=== PATIENT | female | born 1980 | race Caucasian/White ===

== ENCOUNTER 2017-07-11 10:16 | Inpatient (IN) ==
[2017-07-11 11:53] LABS: Eosinophils % 1.9 %; Hematocrit 38.7 % (35.3-44.9); Hemoglobin 12.6 g/dL (11.5-15.4); Lymphocytes # 0.7 K/mcL (0.6-4.6); Lymphocytes % 34.1 %; Mean Corpuscular HGB Conc 32.6 g/dL (31.6-35.5); Mean Corpuscular Volume 98.2 fL (83.0-100.0); Monocytes # 0.2 K/mcL (0.0-1.3); Monocytes % 7.2 %; Neutrophils # 1.2 K/mcL (1.6-8.9); Platelet Count 102 K/mcL (140-400); Red Blood Count 3.94 M/mcL (3.82-4.97); Red Cell Distribution Width 16.7 % (11.5-14.5)
[2017-07-11 11:54] LABS: Bilirubin,Urine Negative (Negative); Blood,Urine Negative (Negative); Clarity,Urine Cloudy (Clear); Color,Urine Yellow (Yellow); Glucose,Urine (UA) Normal (Normal); Ketones,Urine Negative (Negative); Leukocyte Esterase,Urine Negative (Negative); Nitrite,Urine Negative (Negative); PH,Urine 6.5 pH Units (5.0-8.0); Protein,Urine Negative (Neg-Trace); Specific Gravity,Urine 1.021 (1.010-1.025); Urobilinogen,Urine Normal (Normal)
[2017-07-11 11:56] LABS: Bacteria,Urine Few per hpf (None-Few); Hyaline Casts,Urine None Seen per lpf (None-Few); RBC,Urine 0-3 per hpf (0-3); Squamous Epithelial Cell,Urine Many per lpf (None-Few)
[2017-07-11 11:58] LABS: Prothrombin Time 10.2 Seconds (9.4-12.1)
[2017-07-11 12:00] LABS: Activated Partial Thrombo Time 44.9 Seconds (26.0-36.0)
[2017-07-11 12:05] LABS: Segmented Neutrophils % 56.1 %
[2017-07-11 12:05] LABS: Ethanol < 10 mg/dL (0-10)
[2017-07-11 12:11] LABS: Alanine Aminotransferase 44 Units/L (7-52); Albumin 3.7 g/dL (3.5-5.7); Albumin/Globulin Ratio 1.1 (1.1-2.2); Alkaline Phosphatase 185 Units/L (34-104); Aspartate Amino Transferase 42 Units/L (13-39); BUN/Creatinine Ratio 27 (6-26); Bilirubin,Direct 0.1 mg/dL (0.0-0.2); Bilirubin,Indirect 0.1 mg/dL (0.0-1.2); Bilirubin,Total 0.2 mg/dL (0.3-1.0); Blood Urea Nitrogen 17 mg/dL (6-20); Calcium 9.6 mg/dL (8.6-10.3); Carbon Dioxide 33 mEq/L (23-29); Chloride 103 mEq/L (98-107); Globulin 3.3 g/dL (2.4-3.5); Glucose 74 mg/dL (70-105); Osmolality,Calculated 288 (280-300); Potassium 4.2 mEq/L (3.5-5.1); Sodium 139 mEq/L (136-145); eGFR For African Americans > 60 (> 60); eGFR For Non-African Americans > 60 (> 60)
[2017-07-11 12:16] LABS: Amphetamine Screen,Urine Negative ng/mL (Cutoff=1000); Barbiturate Screen,Urine Negative ng/mL (Cutoff=200); Benzodiazepines Screen,Urine Negative ng/mL (Cutoff=200); Cannabinoid Screen,Urine Negative ng/mL (Cutoff = 50); Cocaine Screen,Urine Negative ng/mL (Cutoff= 300); Opiate Screen,Urine Negative ng/mL (Cutoff=300); Phencyclidine Screen,Urine Negative ng/mL (Cutoff=25)
--- NOTE | 2017-07-11 12:18 | Emergency Department Note ---
Disposition Clinical Impression: Hypothermia Altered mental status Qualifiers: Altered mental status type: transient alteration of awareness Qualified Code(s) : R40.4 - Transient alteration of awareness Neutropenic Qualifiers: Neutropenia type: unspecified Qualified Code(s): D70.9 - Neutropenia, unspecified Disposition: Admitted As Inpatient Condition: Fair Time of Disposition: 21:16 Altered Mental Status HPI - General Chief Complaint: ED Altered Mental Status Stated Complaint: "Not acting right" Time Seen by Provider: 07/11/17 10:23 Source: family Limitations: other Nursing Notes Reviewed: Yes Vital Signs Reviewed: Yes - History of Present Illness HPI Narrative: 37-year-old female brought in for altered mental status and started at 0800 hours this morning. Patient's brother who is her printer assistant states that the right side of her face was drawn and and her tongue was hanging out of her mouth. He states that his sister was unresponsive, so he called EMS. Patient has a history of traumatic brain injury with severe neurologic deficits but they stated patient normally is very alert, active and friendly but she is far from her baseline today. Caregivers deny any fevers, cough, congestion and cannot confirm any sick contacts. Patient is on Tegretol for seizures. She is placed on Tegretol for years ago and has not had a seizure since starting Tegretol until today. - Related Data Home Medications Medication Instructions Recorded Confirmed Albuterol Sulfate [Proair 90 mcg IH Q4HR 03/16/15 07/11/17 Respiclick] CarBAMazepine [Tegretol] 200 mg PO Q8HR 03/16/15 07/11/17 Folic Acid 1 mg PO DAILY 03/16/15 07/11/17 Polyethylene Glycol 3350 [MiraLAX] 17 gm PO DAILY 03/16/15 07/11/17 Medroxyprogesterone Acetate 5 mg PO AD 07/11/17 07/11/17 [Provera] Allergies Allergy/AdvReac Type Severity Reaction Status Date / Time No Known Allergies Allergy Verified 07/11/17 12:45 All systems ED: reviewed and negative except as stated. Review of Systems: As Per HPI Constitutional: Denies: fever Respiratory: Denies: cough, dyspnea, wheezes Gastrointestinal: Denies: abdominal pain, nausea, vomiting, diarrhea Genitourinary: Denies: urgency, dysuria Musculoskeletal: Denies: back pain, neck pain Past Medical History - Past Medical History Attestation: Yes The following information was validated with the patient. Source: patient, nursing notes reviewed Medical history: Reports: asthma, seizures, other Surgical history: Reports: other Psychiatric history: Reports: other - Social History Smoking Status: Never smoker Smokeless Tobacco Status: No Alcohol use: Reports: none Drug use: Reports: none Physical Exam Vital Signs Temperature 0 F L 07/11/17 10:28 Pulse Rate 48 07/11/17 10:28 Respiratory Rate 12 07/11/17 10:28 Blood Pressure 101/89 07/11/17 10:28 O2 Sat by Pulse Oximetry 99 07/11/17 10:28 Temperature 91.6 F L 07/11/17 12:50 Pulse Rate 52 07/11/17 10:43 Respiratory Rate 14 07/11/17 10:43 Blood Pressure 127/82 07/11/17 10:43 O2 Sat by Pulse Oximetry 99 07/11/17 10:43 Oxygen Delivery Oxygen Delivery Room Air CONSTITUTIONAL: Alert and oriented X3, well-nourished, well appearing, in no apparent distress HEAD: Normocephalic; atraumatic. EYES: PERRL, no scleral icterus. NOSE: The nose is normal in appearance without rhinorrhea RESP: Normal chest excursion with respiration; breath sounds clear and equal bilaterally; no wheezes, rhonchi, or rales CARD: Regular rhythm, without murmurs, rub or gallop ABD: Non-distended; non-tender, soft,without rigidity, rebound or guarding SKIN: Normal for age and race; warm and dry; no apparent lesions NEUROLOGICAL: Patient is alert and oriented times three. Cranial nerves III- XII are intact. Sensory and motor functions are intact. Strength is 5/5 for flexion and extension in all 4 extremities. Patellar DTRS are equal and intact. Finger to nose testing is equal and normal bilaterally. No dysdiadochokinesis - General Limitations: other General appearance: alert, in no apparent distress Course - Reevaluation(s) Reevaluation #1: Patient had a repeat of the previous episode which look sick seizure activity. Patient had a drop in O2 sats within [place] and she was alert and oriented her vitals normalized. Workup pending Time: 12:07 Reevaluation #2: Patient's well and is alert and oriented 3. Patient's caregiver states that she had to repeat the previous episodes but they were brief. They say that her mentation is getting better. Patient's labs show neutropenia 2.1 Refining able to get a temperature and the patient wishes 91 Time: 12:40 Reevaluation #3: Placing central line Time: 20:20 - Consultations Consultation #1: Consult with Dr. Mccoy of neurology who will see patient in the morning and decide if he needs to change any of her seizure medications. Time: 12:57 Vital Signs Temperature 0 F L 07/11/17 10:28 Pulse Rate 48 07/11/17 10:28 Respiratory Rate 12 07/11/17 10:28 Blood Pressure 101/89 07/11/17 10:28 O2 Sat by Pulse Oximetry 99 07/11/17 10:28 Temperature 98.3 F 07/13/17 07:00 Pulse Rate 102 07/13/17 07:42 Respiratory Rate 12 07/13/17 07:00 Blood Pressure 88/54 07/13/17 07:00 O2 Sat by Pulse Oximetry 96 07/13/17 07:00 Oxygen Delivery Oxygen Delivery Nasal Cannula Procedures - Central Line Placement Left IJ Central Line Inserted*: Yes Central Line Catheter Replacement*: Yes Central Line Insertion: emergent Consent Obtained: written consent Procedural Pause: verify patient name and date of , timeout performed per policy, charan and assess the site, assemble equipment and verify supplies, perform hand hygiene Patient Placed on Monitor/Pulse Ox: Yes During the Procedure: clinician is wearing sterile gloves, cap, mask,& gown during insertion, sterile field and sterile technique are maintained, patient's face is covered with drape or mask and wearing a cap, everyone in room is wearing a mask Central Line Prep: Chlorhexidine scrub Prep the Procedure Site: apply chloraprep to the skin using a back and forth scrubbing motion, apply chloraprep for 30 seconds (upper body), 1-2 min ( femoral sites), allow prep to dry, drape the patient with a full body drape Local Anesthetic: lidocaine 1% Amount of anesthesia used (mL): 5 Ultrasound Used for Placement: Yes Central Line Lumen Inserted: triple Post Procedure: sutured in place, good blood return, all ports aspirated, flushed, capped, sterile dressing applied, guide wire removed and visualized, dressing is dated Post Procedure X-Ray: tip of catheter in good position Patient Tolerated Procedure: well, no complications Complications: none Altered Mental Status - MDM Narrative Medical decision making narrative: Patient presents with transient altered mental status upon waking this morning along with a few witness episodes that seemed like absence seizures. Brief episodes where patient was awake but had a blank stare and then suddenly would come out of it and act normally. Patient was given 2 mg IM Ativan. Workup was then initiated to to try and find an organic cause for the patient's current exacerbations. Differential diagnosis currently includes UTI, pneumonia, sepsis , meningitis. Patient's imaging was unremarkable for any interval changes. Return able to get an oral temp, but obtained a rectal temperature which showed hypothermia at 91.6 degrees Fahrenheit. Patient's chest x-ray was unremarkable. This raises concern for meningitis with the lack of any other site of infection. Lab cultures ordered, set up for lumbar puncture, antibiotics ordered to include 500mg vancomycin, and 2g of ceftriaxone, and 400mg acyclovir. We attempted to perform lumbar puncture but patient has titanium rods implanted along her spine along with large surgical scar down midline spine across our tentative approach for LP. We contacted interventional radiology/fluoroscopy for assistance but they are gone for today. Antibiotics will be initiated and patient will be admitted. LP will be attempted by fluoroscopy tomorrow morning. As far as patient's hypothermia, she has been placed in a bear hugger. Her temperature last temperature at 2007 hrs. is 93 degrees Fahrenheit. Patient is still doing well and has not had any repeat attacks since receiving Ativan. I discussed patient's case with Dr. Mccoy of neurology and placed a consult. He states that since patient was asymptomatic on carbamazepine until today he will wait until he sees the patient tomorrow before he institutes any changes. The current plan is for admission, after speaking with the family they agreed to admission but wanted to relay that it will pose a hardship on the family because there are children at home that he has to care for, and he is the sole guardian (patient's brother). After discussion with hospitalist, patient will go to ICU. Patient required central line for hypotension, but believe patient's normal blood pressure ranges from upper limits of hypotension to lower limits of normotensive. Central line was placed in the left IJ, patient was pretreated with 2 mg of Versed, to keep her calm and patient tolerated procedure well. Patient was accepted for admission to the ICU Dr. Au the hospitalist. - Lab Data Lab results reviewed: Yes I reviewed the patient's lab results. Lab results narrative: Short CBC 07/11/17 Range/Units 10:46 WBC 2.1 L (4.3-11.1) K/mcL Hgb 12.6 (11.5-15.4) g/dL Hct 38.7 (35.3-44.9) % Plt Count 102 L (140-400) K/mcL Neutrophils # 1.2 L (1.6-8.9) K/mcL BMP 07/11/17 Range/Units 11:26 Sodium 139 (136-145) mEq/L Potassium 4.2 (3.5-5.1) mEq/L Chloride 103 (98-107) mEq/L Carbon Dioxide 33 H (23-29) mEq/L BUN 17 (6-20) mg/dL Creatinine 0.63 (0.60-1.20) mg/dL Glucose 74 (70-105) mg/dL Calcium 9.6 (8.6-10.3) mg/dL Cardiac Enzymes 07/11/17 Range/Units 11:26 Troponin I < 0.03 (< 0.04) ng/mL Liver Function 07/11/17 Range/Units 11:26 Total Bilirubin 0.2 L (0.3-1.0) mg/dL Direct Bilirubin 0.1 (0.0-0.2) mg/dL AST 42 H (13-39) Units/L ALT 44 (7-52) Units/L Alkaline Phosphatase 185 H (34-104) Units/L Albumin 3.7 (3.5-5.7) g/dL Urine 07/11/17 Range/Units 11:16 Urine Color Yellow (Yellow) Urine Clarity Cloudy A (Clear) Urine pH 6.5 (5.0-8.0) pH Units Ur Specific [place] 1.021 (1.010-1.025) Urine Protein Negative (Neg-Trace) mg/dL Urine Glucose (UA) Normal (Normal) mg/dL Result diagrams: 07/13/17 06:43 07/13/17 06:43 Lab Results 07/11/17 07/11/17 07/11/17 Range/Units 10:46 10:49 11:16 WBC 2.1 L (4.3-11.1) K/mcL RBC 3.94 (3.82-4.97) M/mcL Hgb 12.6 (11.5-15.4) g/dL Hct 38.7 (35.3-44.9) % MCV 98.2 (83.0-100.0) fL MCH 32.0 (28.0-33.3) pg MCHC 32.6 (31.6-35.5) g/dL RDW 16.7 H (11.5-14.5) % Plt Count 102 L (140-400) K/mcL MPV 12.0 (9.4-12.4) fL Immature Gran % 0.0 (0-4) % Seg Neutrophils % 56.1 % Lymphocytes % 34.1 % Monocytes % 7.2 % Eosinophils % 1.9 % Basophils % 0.0 % Neutrophils # 1.2 L (1.6-8.9) K/mcL Lymphocytes # 0.7 (0.6-4.6) K/mcL Monocytes # 0.2 (0.0-1.3) K/mcL Eosinophils # 0.0 (0.0-0.6) K/mcL Basophils # 0.0 (0.0-0.2) K/mcL PT (9.4-12.1) Seconds INR APTT (26.0-36.0) Seconds Sodium (136-145) mEq/L Potassium (3.5-5.1) mEq/L Chloride (98-107) mEq/L Carbon Dioxide (23-29) mEq/L BUN (6-20) mg/dL Creatinine (0.60-1.20) mg/dL Est GFR ( Amer) (> 60) Est GFR (Non-Af Amer) (> 60) BUN/Creatinine Ratio (6-26) Glucose (70-105) mg/dL POC Glucose 74 (58-89) Calculated Osmolality (280-300) Calcium (8.6-10.3) mg/dL Total Bilirubin (0.3-1.0) mg/dL Direct Bilirubin (0.0-0.2) mg/dL Indirect Bilirubin (0.0-1.2) mg/dL AST (13-39) Units/L ALT (7-52) Units/L Alkaline Phosphatase (34-104) Units/L Troponin I (< 0.04) ng/mL Serum Total Protein (6.4-8.9) g/dL Albumin (3.5-5.7) g/dL Globulin (2.4-3.5) g/dL Albumin/Globulin Ratio (1.1-2.2) TSH (0.340-5.600) mcIU/mL Urine Color Yellow (Yellow) Urine Clarity Cloudy A (Clear) Urine pH 6.5 (5.0-8.0) pH Units Ur Specific [place] 1.021 (1.010-1.025) Urine Protein Negative (Neg-Trace) mg/dL Urine Glucose (UA) Normal (Normal) mg/dL Urine Ketones Negative (Negative) mg/dL Urine Blood Negative (Negative) Urine Nitrite Negative (Negative) Urine Bilirubin Negative (Negative) Urine Urobilinogen Normal (Normal) mg/dL Ur Leukocyte Esterase Negative (Negative) Urine Microscopic RBC 0-3 (0-3) per hpf Urine Microscopic WBC 5-15 H (0-3) per hpf Ur Squamous Epith Cells Many H (None-Few) per lpf Urine Bacteria Few (None-Few) per hpf Hyaline Casts None Seen (None-Few) per lpf Ur Culture Indicated? NO (NO) Urine Opiates Screen (Tobouk=433) ng/mL Ur Barbiturates Screen (Flanlb=576) ng/mL Carbamazepine (4.0-12.0) mcg/mL Ur Phencyclidine Scrn (Cutoff=25) ng/mL Ur Amphetamines Screen (Fnktbw=3352) ng/mL U Benzodiazepines Scrn (Tokket=250) ng/mL Urine Cocaine Screen (Cutoff= 300) ng/mL U Marijuana (THC) Screen (Cutoff = 50) ng/mL Ethyl Alcohol (0-10) mg/dL 07/11/17 07/11/17 07/11/17 Range/Units 11:16 11:26 11:26 WBC (4.3-11.1) K/mcL RBC (3.82-4.97) M/mcL Hgb (11.5-15.4) g/dL Hct (35.3-44.9) % MCV (83.0-100.0) fL MCH (28.0-33.3) pg MCHC (31.6-35.5) g/dL RDW (11.5-14.5) % Plt Count (140-400) K/mcL MPV (9.4-12.4) fL Immature Gran % (0-4) % Seg Neutrophils % % Lymphocytes % % Monocytes % % Eosinophils % % Basophils % % Neutrophils # (1.6-8.9) K/mcL Lymphocytes # (0.6-4.6) K/mcL Monocytes # (0.0-1.3) K/mcL Eosinophils # (0.0-0.6) K/mcL Basophils # (0.0-0.2) K/mcL PT 10.2 (9.4-12.1) Seconds INR 1.0 APTT 44.9 H (26.0-36.0) Seconds Sodium 139 (136-145) mEq/L Potassium 4.2 (3.5-5.1) mEq/L Chloride 103 (98-107) mEq/L Carbon Dioxide 33 H (23-29) mEq/L BUN 17 (6-20) mg/dL Creatinine 0.63 (0.60-1.20) mg/dL Est GFR ( Amer) > 60 (> 60) Est GFR (Non-Af Amer) > 60 (> 60) BUN/Creatinine Ratio 27 H (6-26) Glucose 74 (70-105) mg/dL POC Glucose (58-89) Calculated Osmolality 288 (280-300) Calcium 9.6 (8.6-10.3) mg/dL Total Bilirubin 0.2 L (0.3-1.0) mg/dL Direct Bilirubin 0.1 (0.0-0.2) mg/dL Indirect Bilirubin 0.1 (0.0-1.2) mg/dL AST 42 H (13-39) Units/L ALT 44 (7-52) Units/L Alkaline Phosphatase 185 H (34-104) Units/L Troponin I (< 0.04) ng/mL Serum Total Protein 7.0 (6.4-8.9) g/dL Albumin 3.7 (3.5-5.7) g/dL Globulin 3.3 (2.4-3.5) g/dL Albumin/Globulin Ratio 1.1 (1.1-2.2) TSH (0.340-5.600) mcIU/mL Urine Color (Yellow) Urine Clarity (Clear) Urine pH (5.0-8.0) pH Units Ur Specific [place] (1.010-1.025) Urine Protein (Neg-Trace) mg/dL Urine Glucose (UA) (Normal) mg/dL Urine Ketones (Negative) mg/dL Urine Blood (Negative) Urine Nitrite (Negative) Urine Bilirubin (Negative) Urine Urobilinogen (Normal) mg/dL Ur Leukocyte Esterase (Negative) Urine Microscopic RBC (0-3) per hpf Urine Microscopic WBC (0-3) per hpf Ur Squamous Epith Cells (None-Few) per lpf Urine Bacteria (None-Few) per hpf Hyaline Casts (None-Few) per lpf Ur Culture Indicated? (NO) Urine Opiates Screen Negative (Indbpd=375) ng/mL Ur Barbiturates Screen Negative (Vuvoco=845) ng/mL Carbamazepine 11.7 (4.0-12.0) mcg/mL Ur Phencyclidine Scrn Negative (Cutoff=25) ng/mL Ur Amphetamines Screen Negative (Ypuydp=6498) ng/mL U Benzodiazepines Scrn Negative (Qamnyw=034) ng/mL Urine Cocaine Screen Negative (Cutoff= 300) ng/mL U Marijuana (THC) Screen Negative (Cutoff = 50) ng/mL Ethyl Alcohol < 10 (0-10) mg/dL 07/11/17 07/11/17 Range/Units 11:26 11:26 WBC (4.3-11.1) K/mcL RBC (3.82-4.97) M/mcL Hgb (11.5-15.4) g/dL Hct (35.3-44.9) % MCV (83.0-100.0) fL MCH (28.0-33.3) pg MCHC (31.6-35.5) g/dL RDW (11.5-14.5) % Plt Count (140-400) K/mcL MPV (9.4-12.4) fL Immature Gran % (0-4) % Seg Neutrophils % % Lymphocytes % % Monocytes % % Eosinophils % % Basophils % % Neutrophils # (1.6-8.9) K/mcL Lymphocytes # (0.6-4.6) K/mcL Monocytes # (0.0-1.3) K/mcL Eosinophils # (0.0-0.6) K/mcL Basophils # (0.0-0.2) K/mcL PT (9.4-12.1) Seconds INR APTT (26.0-36.0) Seconds Sodium (136-145) mEq/L Potassium (3.5-5.1) mEq/L Chloride (98-107) mEq/L Carbon Dioxide (23-29) mEq/L BUN (6-20) mg/dL Creatinine (0.60-1.20) mg/dL Est GFR ( Amer) (> 60) Est GFR (Non-Af Amer) (> 60) BUN/Creatinine Ratio (6-26) Glucose (70-105) mg/dL POC Glucose (58-89) Calculated Osmolality (280-300) Calcium (8.6-10.3) mg/dL Total Bilirubin (0.3-1.0) mg/dL Direct Bilirubin (0.0-0.2) mg/dL Indirect Bilirubin (0.0-1.2) mg/dL AST (13-39) Units/L ALT (7-52) Units/L Alkaline Phosphatase (34-104) Units/L Troponin I < 0.03 (< 0.04) ng/mL Serum Total Protein (6.4-8.9) g/dL Albumin (3.5-5.7) g/dL Globulin (2.4-3.5) g/dL Albumin/Globulin Ratio (1.1-2.2) TSH 4.935 (0.340-5.600) mcIU/mL Urine Color (Yellow) Urine Clarity (Clear) Urine pH (5.0-8.0) pH Units Ur Specific [place] (1.010-1.025) Urine Protein (Neg-Trace) mg/dL Urine Glucose (UA) (Normal) mg/dL Urine Ketones (Negative) mg/dL Urine Blood (Negative) Urine Nitrite (Negative) Urine Bilirubin (Negative) Urine Urobilinogen (Normal) mg/dL Ur Leukocyte Esterase (Negative) Urine Microscopic RBC (0-3) per hpf Urine Microscopic WBC (0-3) per hpf Ur Squamous Epith Cells (None-Few) per lpf Urine Bacteria (None-Few) per hpf Hyaline Casts (None-Few) per lpf Ur Culture Indicated? (NO) Urine Opiates Screen (Vrhqpf=330) ng/mL Ur Barbiturates Screen (Wsvkwe=528) ng/mL Carbamazepine (4.0-12.0) mcg/mL Ur Phencyclidine Scrn (Cutoff=25) ng/mL Ur Amphetamines Screen (Smcjzd=0552) ng/mL U Benzodiazepines Scrn (Pfflqp=584) ng/mL Urine Cocaine Screen (Cutoff= 300) ng/mL U Marijuana (THC) Screen (Cutoff = 50) ng/mL Ethyl Alcohol (0-10) mg/dL - Radiology Data Radiology results reviewed: Yes I reviewed the patient's radiology results. Head CT 07/11/17 10:47 IMPRESSION: 1. No acute intracranial abnormality. 2. Extensive encephalomalacia and gliosis involving nearly the entire right cerebral hemisphere, compatible with sequelae of remote injury/infarct. No significant interval change. D/ / 07/11/2017 12:03:30 Austin Mejia MD / perla Interpreting Provider: Austin Mejia MD Chest X-Ray 07/11/17 20:48 IMPRESSION: New left internal jugular central venous line. The tip of the central venous line is obscured by the scoliosis rods but appears to be near the superior vena cava. No acute pulmonary process. D/ / 07/11/2017 21:36:55 Ondina Allen MD / kaela Interpreting Provider: Ondina Allen MD - EKG Data EKG attestation: Yes I reviewed and interpreted this EKG. EKG results narrative: EKG taken 2017 1141 hrs. shows sinus bradycardia at a rate of 52 beats a minute with first-degree AV block. Previous EKG for comparison shows a sinus bradycardia as well at a rate of 57 bpm. Both EKGs appear the same Attestation Statement - Attestation Attestation: I examined this patient and my medical decision-making was reviewed with the Resident Physician. I agree with the documented findings, disposition and treatment plan as described except to the extent set forth below. Patient presents to the ED with altered mental status. Family states when she woke up this morning her right side of her face was drawn in. They state she is moving slower. She is not as interactive. She is normally able to talk and she is just kind of mumbling today. She has not had a fever. She has a history of MR. She is normally able to move around though nonambulatory. On examination she is awake and alert. She is grabbing at my name badge. Moving her arms. Left arm is contracted. Lungs clear. Abdomen soft. They state she is mentally at her baseline except that she is moving slower than normal. Plan. Altered mental status workup. Patient is hypothermic. Bearhug are placed. She is also leukopenic. Will start broad-spectrum antibiotic. Discussing lumbar puncture with family. Lumbar puncture needs to be performed. Patient still hypothermic. Starting bear hugger. Patient has a alexandra in her back. We will have IR performed. 35 minutes of critical care exclusive of separately billable procedures.
[2017-07-11] MEDS ORDERED: *HR* LORazepam 2 MG/ML VIAL IVP ONE (12:31)
[2017-07-11] MEDS ORDERED: *HR* LORazepam 2 MG/ML VIAL IM ONE (12:38)
[2017-07-11] MEDS ORDERED: cefTRIAXone 2,000 MG in Water for inj. (sterile) 20 ML IVP ONE (12:59)
[2017-07-11] MEDS ORDERED: 0.9 % Sodium Chloride 1,000 ML IVC ONE (13:31)
[2017-07-11 14:13] LABS: Carbamazepine (Tegretol) 11.7 mcg/mL (4.0-12.0)
--- NOTE | 2017-07-11 14:42 | Electrocardiograph Report ---
[place] [id number] Test Date: 2017-07-11 Pat Name: Kesha Vinson Department: 103 Room: Gender: F Dynamiter: BAUTISTA : 1980 Requested By: Tiny See Order Number: [id number] Reading MD: Terrence Hodges DO Measurements Intervals [place] Rate: 52 P: 172 MS: 248 QRS: 10 QRSD: 125 T: 149 QT: 417 QTc: 398 Interpretive Statements SINUS BRADYCARDIA WITH FIRST DEGREE AV BLOCK INFERIOR MYOCARDIAL INFARCTION, PROBABLY OLD Electronically Signed On 07-11-2017 14:40:33 EST by Terrence Hodges DO
[2017-07-11] MEDS ORDERED: *HR* FentaNYL (PF) 100 MCG/2 ML VIAL IVP ONE (15:24)
[2017-07-11] MEDS: *HR* Etomidate 20 MG/10 ML AMPUL IVP ONE ×2 (15:42→15:51)
[2017-07-11] MEDS: Vancomycin 500 MG in 0.9 % Sodium Chloride Mini Bag 100 ML IVPB SCH (16:22)
[2017-07-11] MEDS ORDERED: ACYCLOVIR IVPB ONE (16:43)
[2017-07-11] MEDS ORDERED: D5 IVPB ONE (16:43)
[2017-07-11] MEDS ORDERED: WATER IVPB ONE (16:43)
[2017-07-11] MEDS ORDERED: Naloxone 0.4 MG/ML INJ IVP PRN (20:04)
[2017-07-11] MEDS ORDERED: Acetaminophen 325 MG TABLET PO PRN (20:04)
[2017-07-11] MEDS ORDERED: *HR* Midazolam HCl 2 MG/2 ML VIAL IVP ONE (20:12)
[2017-07-11] MEDS ORDERED: Norepinephrine 4 MG in D5% in Water 250 ML IVC SCH (20:15)
[2017-07-11] MEDS ORDERED: *HR* Midazolam HCl 2 MG/2 ML VIAL ONE (20:15)
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
[2017-07-11] MEDS ORDERED: Vancomycin (wt based) 1,000 MG VIAL IVPB SCH (21:00)
[2017-07-11] MEDS: D5 IVPB SCH (23:34)
[2017-07-11] MEDS: ACYCLOVIR IVPB SCH (23:34)
[2017-07-11] MEDS: WATER IVPB SCH (23:34)
[2017-07-11] MEDS: 0.9 % Sodium Chloride w KCl 20 MEQ/1,000 ML MLS IVC SCH (23:35)
[2017-07-11] MEDS: *HR* Heparin 5,000 UNIT/ML VIAL SQ SCH (23:35)
[2017-07-11] MEDS: carBAMazepine 200 MG TABLET PO SCH (23:36)
[2017-07-12 00:06] LABS: Influenza A PCR Negative (Negative); Influenza B PCR Negative (Negative); Resp. Syncytial Virus PCR Negative (Negative)
[2017-07-12] MEDS ORDERED: cefTRIAXone 2,000 MG in Water for inj. (sterile) 20 ML 20 ML IVP SCH ×2 (01:00→13:00)
[2017-07-12] MEDS: Vancomycin 500 MG in 0.9 % Sodium Chloride Mini Bag 100 ML IVPB SCH ×2 (01:34→14:34)
[2017-07-12 04:47] LABS: Basophils % 0.3 %; Eosinophils % 0.9 %; Immature Granulocytes % 0.3 % (0-4); Lymphocytes % 19.7 %; Mean Corpuscular HGB Conc 33.3 g/dL (31.6-35.5); Mean Corpuscular Hemoglobin 32.4 pg (28.0-33.3); Mean Corpuscular Volume 97.1 fL (83.0-100.0); Monocytes # 0.4 K/mcL (0.0-1.3); Monocytes % 11.1 %; Neutrophils # 2.2 K/mcL (1.6-8.9); Platelet Count 129 K/mcL (140-400); Red Cell Distribution Width 16.7 % (11.5-14.5); Segmented Neutrophils % 67.7 %
[2017-07-12 04:50] LABS: Lymphocytes # 0.7 K/mcL (0.6-4.6)
[2017-07-12 05:02] LABS: BUN/Creatinine Ratio 14 (6-26); Blood Urea Nitrogen 10 mg/dL (6-20); Calcium 8.4 mg/dL (8.6-10.3); Carbon Dioxide 27 mEq/L (23-29); Chloride 111 mEq/L (98-107); Glucose 56 mg/dL (70-105); Osmolality,Calculated 293 (280-300); Potassium 4.8 mEq/L (3.5-5.1); Sodium 143 mEq/L (136-145); eGFR For African Americans > 60 (> 60); eGFR For Non-African Americans > 60 (> 60)
[2017-07-12] MEDS: *HR* Heparin 5,000 UNIT/ML VIAL SQ SCH ×2 (05:50→16:58)
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
[2017-07-12] MEDS: 0.9 % Sodium Chloride w KCl 20 MEQ/1,000 ML MLS IVC SCH (07:47)
[2017-07-12] MEDS: carBAMazepine 200 MG TABLET PO SCH ×2 (08:19→16:58)
[2017-07-12] MEDS ORDERED: Folic Acid 1 MG TABLET PO SCH (09:00)
--- NOTE | 2017-07-12 09:44 | Neurology - Consult Note ---
<Nick Whitney - Last Filed: 07/12/17 13:40> Date of Encounter: 07/12/17 Time of Encounter: 09:41 Assessment and Plan (1) Acute encephalopathy Current Visit: Yes Status: Resolved Patient presented with decreased level of consciousness and was admitted for concerns of meningitis. On my exam this morning the patient was alert, active, and responsive, however this afternoon her level of consciousness appears to be somewhat decreased again. Her baseline mental status is awake, alert and very interactive and talkative per her brother. She was noted to be hypothermic and leukopenic which could be indicative of infection however her hypothermia resolved quickly and review of old lab tests showed that she is been leukopenic consistently since 2014. On clinical exam she has no headache or nuchal rigidity and no other meningeal signs making infectious meningitis less likely. Patient also responded extremely quickly to antibiotics and we would not expect such a rapid recovery in such a short period of time if this was true bacterial or viral meningitis. Although she is improving she is not back to baseline so we will consider LP pending her EEG results. Will defer further workup for metabolic encephalopathy to the intensive care team. (2) Seizure disorder Current Visit: Yes Status: Chronic Patient is noted to have a seizure disorder secondary to long-standing traumatic brain injury. There was a concern for seizure activity by the emergency department per family's report and patient had an episode of decreased consciousness and staring spells. Carbamazepine level was therapeutic at 11.7. CT of the head was obtained that showed no acute changes. Would recommend continuing the patient's carbamazepine at her home dose. EEG pending, will consider adding another antiepileptic depending on the EEG results. (3) Traumatic brain injury Current Visit: Yes Status: Chronic Qualifiers: Encounter type: sequela Loss of consciousness presence/duration: without LOC Qualified Code(s): S06.9X0S - Unspecified intracranial injury without loss of consciousness, sequela History of Present Illness Chief complaint: AMS HPI: Ms. Vinson is a 37 year old female with history of traumatic brain injury with seizures who presented with altered mental status. Patient has some cognitive limitations so her ability to give a history is somewhat limited. Supplemental historical information is obtained from the medical record. Patient was brought to the emergency department by family due to concerns of altered mental status, hypothermia and decrease in activity. The patient had apparently been complaining of headache and neck pain prior to arrival. At the time I examined the patient is awake, alert, and interactive. She is able to answer simple questions and follow commands which appears to be close to her baseline but will discuss further with her brother who is also her primary yarn finisher. She is able to state that she had a headache prior to arrival but no longer has a headache. She does not appear to have any other specific complaints at this time. Past Med Surg Social Fam HX - Past Medical History Medical history: asthma, seizures, other Psychiatric history: other - Past Surgical History Surgical History: other - Social History Smoking Status: Never smoker Smokeless Tobacco Status: No Alcohol use: none Drug use: none - Family History Mother History Unknown: Yes Adopted: No (CONTACT WITH MOTHER X 30YRS -- mother in senior care) Living Status: Unknown Hx Family Cardiac Disorders: No (NA) Hx Family Respiratory Disorders: No (NA) Hx Family Cancer: No (NA) Hx Family GI Disorders: No (NA) Hx Family Endocrine Disorder: No (NA) Hx Family Neuromuscular Disorders: No (NA) Hx Family Neurologic Disorders: No (NA) Hx Family HEENT Disorders: No (NA) Hx Family Autoimmune Disorders: No (NA) Father Adopted: No Living Status: Hx Family Cardiac Disorders: Yes (CHF) Hx Family Respiratory Disorders: Yes (PNEUMONIA) Hx Family Cancer: No Hx Family GI Disorders: No Hx Family Endocrine Disorder: No Hx Family Neuromuscular Disorders: No Hx Family Neurologic Disorders: No (CVA) Hx Family HEENT Disorders: No Hx Family Autoimmune Disorders: No Medications and Allergies Albuterol Sulfate [Proair Respiclick] 90 mcg IH Q4HR 03/16/15 [History] CarBAMazepine [Tegretol] 200 mg PO Q8HR 03/16/15 [History] Folic Acid 1 mg PO DAILY 03/16/15 [History] Polyethylene Glycol 3350 [MiraLAX] 17 gm PO DAILY 03/16/15 [History] Medroxyprogesterone Acetate [Provera] 5 mg PO AD 07/11/17 [History] 3 Allergy/AdvReac Type Severity Reaction Status Date / Time No Known Allergies Allergy Verified 07/11/17 12:45 ROS unobtainable: due to mental status All Systems: A 10-system review of systems was performed and is negative for pertinent findings except as documented above in the HPI. Physical Examination - Vital Signs Vital Signs: Initial Vital Signs Temp Pulse Resp BP Pulse Ox 0 F L 48 12 101/89 99 07/11/17 10:28 07/11/17 10:28 07/11/17 10:28 07/11/17 10:28 07/11/17 10:28 - Constitutional General appearance: comfortable, younger than stated age - Neurologic Sensorimotor examination: hemiparesis (Left) Motor examination - right side: 4/5: deltoids, biceps, triceps, wrist flexion, wrist extension, videotape recording engineer, hip flexors, toe extension (EHL), plantarflexion Detailed sensory examination: intact Posture: other (Chronic contractures to left upper and lower extremity) Reflexes: Biceps: 2+ (2+ on right, absent on left), Brachioradialis: 2+ (2+ on right, absent on left), Patella: 2+ (2+ on right, absent on left) Mental Status Examination: awake, alert, oriented to person, oriented to place, answers questions appropriately, follows simple commands, impaired cognition, cognitive impairment Cranial nerve examination: EOMI, sensory to face intact, tongue protrudes midline Results - Laboratory Findings CBC and BMP: 07/12/17 04:15 07/12/17 04:15 Abnormal lab findings: Abnormal lab results WBC 3.3 K/mcL (4.3-11.1) L D 07/12/17 04:15 RBC 3.40 M/mcL (3.82-4.97) L 07/12/17 04:15 Hgb 11.0 g/dL (11.5-15.4) L D 07/12/17 04:15 Hct 33.0 % (35.3-44.9) L 07/12/17 04:15 RDW 16.7 % (11.5-14.5) H 07/12/17 04:15 Plt Count 129 K/mcL (140-400) L 07/12/17 04:15 APTT 44.9 Seconds (26.0-36.0) H 07/11/17 11:26 Chloride 111 mEq/L (98-107) H 07/12/17 04:15 Glucose 56 mg/dL (70-105) L 07/12/17 04:15 POC Glucose 97 (58-89) H 07/11/17 21:54 Calcium 8.4 mg/dL (8.6-10.3) L 07/12/17 04:15 Total Bilirubin 0.2 mg/dL (0.3-1.0) L 07/11/17 11:26 AST 42 Units/L (13-39) H 07/11/17 11:26 Alkaline Phosphatase 185 Units/L (34-104) H 07/11/17 11:26 Urine Clarity Cloudy (Clear) A 07/11/17 11:16 Urine Microscopic WBC 5-15 per hpf (0-3) H 07/11/17 11:16 Ur Squamous Epith Cells Many per lpf (None-Few) H 07/11/17 11:16 Consult Discharge Plan - Plan Referrals: Erick Mon MD [Primary Care Provider] - <Nick cMcoy - Last Filed: 07/12/17 15:08> Date of Encounter: 07/12/17 Assessment and Plan (1) Acute encephalopathy Current Visit: Yes Status: Resolved Case was discussed with Dr. Harrell, I agree with his statement as above. Likelihood of meningitis is considering the fact that she has been awake and alert during her hospital stay. He has no nuchal rigidity. She has not had a witnessed seizure. Her metabolic panel looks benign. I would suspect that she has some other underlying metabolic INFECTIOUS etiology explaining her mental status change. EEG did not reveal any evidence of spike and wave activity. CT scan revealed a chronic encephalomalacia of the right cerebral hemisphere which was known. Otherwise no acute changes from her previous CT scans. My only other recommendation would be to switch her from Tegretol to levetiracetam, this might help to improve her WBCs. Tegretol is known to cause neutropenia. I will evaluate her in the morning. History of Present Illness HPI: The chart was reviewed, the patient was seen and examined independently. Case was discussed with Dr. Harrell. I agree with his account as stated above. I did review EMG which reveals generalized encephalopathy. There is no evidence of seizure activity. All Systems: A 10-system review of systems was performed and is negative for pertinent findings except as documented above in the HPI. Physical Examination - Vital Signs Vital Signs: Initial Vital Signs Temp Pulse Resp BP Pulse Ox 0 F L 48 12 101/89 99 07/11/17 10:28 07/11/17 10:28 07/11/17 10:28 07/11/17 10:28 07/11/17 10:28 Results - Laboratory Findings CBC and BMP: 07/12/17 04:15 07/12/17 04:15 Abnormal lab findings: Abnormal lab results WBC 3.3 K/mcL (4.3-11.1) L D 07/12/17 04:15 RBC 3.40 M/mcL (3.82-4.97) L 07/12/17 04:15 Hgb 11.0 g/dL (11.5-15.4) L D 07/12/17 04:15 Hct 33.0 % (35.3-44.9) L 07/12/17 04:15 RDW 16.7 % (11.5-14.5) H 07/12/17 04:15 Plt Count 129 K/mcL (140-400) L 07/12/17 04:15 APTT 44.9 Seconds (26.0-36.0) H 07/11/17 11:26 Chloride 111 mEq/L (98-107) H 07/12/17 04:15 Glucose 56 mg/dL (70-105) L 07/12/17 04:15 POC Glucose 176 (58-89) H 07/12/17 12:37 Calcium 8.4 mg/dL (8.6-10.3) L 07/12/17 04:15 Total Bilirubin 0.2 mg/dL (0.3-1.0) L 07/11/17 11:26 AST 42 Units/L (13-39) H 07/11/17 11:26 Alkaline Phosphatase 185 Units/L (34-104) H 07/11/17 11:26 Urine Clarity Cloudy (Clear) A 07/11/17 11:16 Urine Microscopic WBC 5-15 per hpf (0-3) H 07/11/17 11:16 Ur Squamous Epith Cells Many per lpf (None-Few) H 07/11/17 11:16
[2017-07-12] MEDS ORDERED: Acetaminophen 325 MG TABLET PO PRN (12:22)
[2017-07-12] MEDS ORDERED: Naloxone 0.4 MG/ML INJ IVP PRN (12:22)
--- NOTE | 2017-07-12 14:18 | EEG/EMG/Oth Biometrics Report ---
EEG Procedure Report Date of procedure: 07/12/17 EEG Procedure: Routine EEG Procedure Note: This is a report of a 21 channel bipolar and referential montage EEG. There is no posterior dominant alpha rhythm identified in any time during the recording. The left hemisphere reveals mixed delta and theta frequencies with superimposed artifact. Artifactual continent present in the entire right cerebral hemisphere. Hyperventilation is not performed in recording. There is no normal sleep architecture identified during the study. Photic stimulation is performed and does not produce a driving response. The EKG rhythm strip reveals normal sinus rhythm at 96 beats per minute. Impressions this EEG recording is abnormal and is consistent with moderate to severe generalized encephalopathy. Involving the left cerebral hemisphere. There is a lack of cortical activity emanating from the right cortex. This is in keeping with the known history of severe widespread encephalomalacia of the right hemisphere. There is no evidence of epileptiform activity identified during the study. Please correlate clinically.
[2017-07-12] MEDS ORDERED: carBAMazepine 200 MG TABLET PO ONE (18:41)
[2017-07-13] MEDS: carBAMazepine 200 MG TABLET PO SCH ×4 (00:03→22:51)
[2017-07-13] MEDS: Vancomycin 500 MG in 0.9 % Sodium Chloride Mini Bag 100 ML IVPB SCH (03:31)
[2017-07-13] MEDS: *HR* Heparin 5,000 UNIT/ML VIAL SQ SCH ×2 (06:03→16:44)
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
--- NOTE | 2017-07-13 07:35 | Neurology Progress Note ---
Date of Encounter: 07/13/17 Time of Encounter: 07:33 Assessment and Plan (1) Acute encephalopathy Current Visit: Yes Status: Resolved Patient today seems to be improved. She is more interactive, she makes direct eye contact. She is verbalizing more. I see no evidence of a central nervous system infectious process. No evidence of central nervous system vascular event. I suspected her neutropenia secondary to the Tegretol. I would consider changing that if her family intends to follow-up with me after discharge. We will reevaluate her at your request. Subjective Interval history: Chart was reviewed, patient was seen and examined. No acute changes overnight. No seizure activity identified. This morning she is awake and verbal. She knows that her name is Kesha, she does call her little stuffed animal "mom," she reaches out to shake my hand with her right hand. I see no involuntary movements. She makes eye contact and fully engages the entire time I was there. She smiles and is very interactive. Objective - Constitutional Vitals: Temp Pulse Resp BP Pulse Ox 98.3 F 90 12 88/54 96 07/13/17 07:00 07/13/17 07:00 07/13/17 07:00 07/13/17 07:00 07/13/17 07:00 - Neurological Exam Sensorimotor examination: Present: hemiparesis Motor Examination: Present: other (She is very small considering her age. She does have left hemiparesis her left arm and leg are also hypoplastic. She does move the right arm freely.) Sensation intact: Present: other (Difficult to obtain a good sensory exam on this patient.) Posture: Present: other (Chronic contractures to left upper and lower extremity) Mental Status Examination: Present: awake, alert, oriented to person, oriented to place, follows simple commands, impaired cognition, cognitive impairment. Absent: answers questions appropriately (She answers some questions appropriately however given the nature of her baseline she has severe cognitive impairments.) Cranial nerve examination: Present: EOMI, sensory to face intact, tongue protrudes midline Results - Laboratory Findings CBC and BMP: 07/12/17 04:15 07/12/17 04:15 Abnormal lab findings: Abnormal lab results WBC 3.3 K/mcL (4.3-11.1) L D 07/12/17 04:15 RBC 3.40 M/mcL (3.82-4.97) L 07/12/17 04:15 Hgb 11.0 g/dL (11.5-15.4) L D 07/12/17 04:15 Hct 33.0 % (35.3-44.9) L 07/12/17 04:15 RDW 16.7 % (11.5-14.5) H 07/12/17 04:15 Plt Count 129 K/mcL (140-400) L 07/12/17 04:15 APTT 44.9 Seconds (26.0-36.0) H 07/11/17 11:26 Chloride 111 mEq/L (98-107) H 07/12/17 04:15 Glucose 56 mg/dL (70-105) L 07/12/17 04:15 POC Glucose 176 (58-89) H 07/12/17 12:37 Calcium 8.4 mg/dL (8.6-10.3) L 07/12/17 04:15 Total Bilirubin 0.2 mg/dL (0.3-1.0) L 07/11/17 11:26 AST 42 Units/L (13-39) H 07/11/17 11:26 Alkaline Phosphatase 185 Units/L (34-104) H 07/11/17 11:26 Urine Clarity Cloudy (Clear) A 07/11/17 11:16 Urine Microscopic WBC 5-15 per hpf (0-3) H 07/11/17 11:16 Ur Squamous Epith Cells Many per lpf (None-Few) H 07/11/17 11:16 Consult Discharge Plan - Plan Referrals: Erick Mon MD [Primary Care Provider] -
[2017-07-13 08:39] LABS: Basophils % 0.2 %; Eosinophils # 0.1 K/mcL (0.0-0.6); Eosinophils % 1.6 %; Hematocrit 32.3 % (35.3-44.9); Hemoglobin 10.6 g/dL (11.5-15.4); Immature Granulocytes % 0.4 % (0-4); Mean Corpuscular HGB Conc 32.8 g/dL (31.6-35.5); Mean Corpuscular Hemoglobin 32.2 pg (28.0-33.3); Mean Corpuscular Volume 98.2 fL (83.0-100.0); Monocytes # 0.8 K/mcL (0.0-1.3); Monocytes % 16.2 %; Neutrophils # 3.1 K/mcL (1.6-8.9); Platelet Count 124 K/mcL (140-400); Red Blood Count 3.29 M/mcL (3.82-4.97); Red Cell Distribution Width 17.2 % (11.5-14.5); Segmented Neutrophils % 62.6 %
[2017-07-13 08:48] LABS: BUN/Creatinine Ratio 17 (6-26); Blood Urea Nitrogen 12 mg/dL (6-20); Calcium 8.7 mg/dL (8.6-10.3); Carbon Dioxide 31 mEq/L (23-29); Chloride 110 mEq/L (98-107); Glucose 71 mg/dL (70-105); Magnesium 1.7 mg/dL (1.6-2.6); Osmolality,Calculated 298 (280-300); Potassium 4.1 mEq/L (3.5-5.1); Sodium 145 mEq/L (136-145); eGFR For African Americans > 60 (> 60); eGFR For Non-African Americans > 60 (> 60)
[2017-07-13] MEDS ORDERED: cefTRIAXone 2,000 MG in Water for inj. (sterile) 20 ML 20 ML IVP SCH (09:00)
[2017-07-13] MEDS ORDERED: Folic Acid 1 MG TABLET PO SCH (09:00)
[2017-07-13] MEDS ORDERED: Aminoglycoside Consult 1 EACH MC ONE (12:58)
[2017-07-13] MEDS ORDERED: Acetaminophen 325 MG TABLET PO PRN (13:06)
[2017-07-13] MEDS ORDERED: Naloxone 0.4 MG/ML INJ IVP PRN (13:06)
[2017-07-13] MEDS ORDERED: carBAMazepine 200 MG TABLET PO SCH (16:00)
[2017-07-14] MEDS: *HR* Heparin 5,000 UNIT/ML VIAL SQ SCH ×2 (05:27→16:15)
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
[2017-07-14] MEDS: cefTRIAXone 1,000 MG in Water for inj. (sterile) 20 ML 10 ML IVP SCH (08:46)
[2017-07-14] MEDS: carBAMazepine 200 MG TABLET PO SCH ×3 (08:46→19:50)
[2017-07-14] MEDS: Folic Acid 1 MG TABLET PO SCH (08:46)
[2017-07-14] MEDS ORDERED: cefTRIAXone 2,000 MG in Water for inj. (sterile) 20 ML 20 ML IVP SCH (09:00)
[2017-07-14] MEDS: D5 IVPB SCH (19:34)
[2017-07-14] MEDS: ACYCLOVIR IVPB SCH (19:34)
[2017-07-14] MEDS: WATER IVPB SCH (19:34)
[2017-07-14] MEDS: 0.9 % Sodium Chloride w KCl 20 MEQ/1,000 ML MLS IVC SCH (19:35)
[2017-07-15] MEDS: *HR* Heparin 5,000 UNIT/ML VIAL SQ SCH (06:15)
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
[2017-07-15] MEDS: cefTRIAXone 1,000 MG in Water for inj. (sterile) 20 ML 10 ML IVP SCH (08:07)
[2017-07-15] MEDS: carBAMazepine 200 MG TABLET PO SCH (08:08)
[2017-07-15] MEDS: Folic Acid 1 MG TABLET PO SCH (08:08)
[2017-07-15 10:50] VITALS: BP 103/68
== END 2017-07-15 12:59 | disposition home or self-care (01) | DRG 720 ==
LOC: EMEROO 10:16 → 2NNU 10:16 → ICNU 17:39 → 3ANU 07-13 13:37
PROVIDERS: ADMIT Internal Medicine Cardiovascular Disease; ATTEND Internal Medicine

== ENCOUNTER 2019-07-05 10:36 | Inpatient (IN) ==
[2019-07-05] MEDS ORDERED: 0.9 % Sodium Chloride 1,000 ML IVC STA (11:07)
[2019-07-05] MEDS ORDERED: Ipratropium/Albuterol Neb 3 ML IH STA (11:23)
[2019-07-05 11:52] LABS: ABG Base Excess 6 mEq/L (-2 to 3); ABG HCO3 30 mEq/L (21-27); ABG Oxygen Saturation 97 % (95-98); ABG PCO2 39 mmHg (35-45); ABG PH 7.49 pH Units (7.32-7.45); ABG PO2 83 mmHg (85-104); ABG TCO2 31 mEq/L (20-26)
[2019-07-05 11:58] LABS: Bilirubin,Urine Negative (Negative); Blood,Urine Moderate (Negative); Clarity,Urine Turbid (Clear); Color,Urine Dark Yellow (Yellow); Glucose,Urine (UA) Normal (Normal); Ketones,Urine Negative (Negative); Leukocyte Esterase,Urine Moderate (Negative); Nitrite,Urine Negative (Negative); PH,Urine 5.5 pH Units (5.0-8.0); Protein,Urine >=300 mg/dL (Neg-Trace); Specific Gravity,Urine 1.024 (1.010-1.025); Urobilinogen,Urine Normal (Normal)
[2019-07-05 12:04] LABS: Bacteria,Urine Moderate per hpf (None-Few); Squamous Epithelial Cell,Urine Many per lpf (None-Few); WBC,Urine TNTC per hpf (0-3)
[2019-07-05 12:52] LABS: INR 1.3
[2019-07-05 12:55] LABS: Basophils % 0.2 %; Eosinophils # 0.1 K/mcL (0.0-0.6); Eosinophils % 0.7 %; Hematocrit 40.4 % (35.3-44.9); Hemoglobin 11.2 g/dL (11.5-15.4); Immature Granulocytes % 0.4 % (0-4); Lymphocytes # 1.5 K/mcL (0.6-4.6); Lymphocytes % 13.9 %; Mean Corpuscular HGB Conc 27.7 g/dL (31.6-35.5); Mean Corpuscular Hemoglobin 25.1 pg (28.0-33.3); Mean Corpuscular Volume 90.6 fL (83.0-100.0); Mean Platelet Volume 13.2 fL (9.4-12.4); Monocytes # 0.6 K/mcL (0.0-1.3); Monocytes % 5.1 %; Neutrophils # 8.7 K/mcL (1.6-8.9); Platelet Count 219 K/mcL (140-400); Red Blood Count 4.46 M/mcL (3.82-4.97); Red Cell Distribution Width 20.7 % (11.5-14.5); Segmented Neutrophils % 79.7 %; White Blood Count 10.9 K/mcL (4.3-11.1)
[2019-07-05] MEDS ORDERED: 0.9 % Sodium Chloride 1,000 ML IVC ONE (12:59)
[2019-07-05] MEDS ORDERED: levoFLOXacin 750 MG/150 ML 750 MG/150 ML BAG IVPB ONE (12:59)
[2019-07-05 13:13] LABS: Anisocytosis 1+ (Not Present); Hypochromasia Present (Not Present); Large Platelets Present (Not Present); Platelet Estimate Normal (Normal)
[2019-07-05 15:27] LABS: Alanine Aminotransferase 42 Units/L (7-52); Albumin 3.1 g/dL (3.5-5.7); Albumin/Globulin Ratio 0.8 (1.1-2.2); Alkaline Phosphatase 123 Units/L (34-104); Aspartate Amino Transferase 35 Units/L (13-39); BUN/Creatinine Ratio 23 (6-26); Bilirubin,Direct 0.2 mg/dL (0.0-0.2); Bilirubin,Indirect 0.1 mg/dL (0.0-1.0); Bilirubin,Total 0.3 mg/dL (0.3-1.0); Blood Urea Nitrogen 24 mg/dL (6-20); Calcium 8.1 mg/dL (8.6-10.3); Carbon Dioxide 25 mEq/L (23-29); Chloride 125 mEq/L (98-107); Globulin 3.8 g/dL (2.4-3.5); Glucose 158 mg/dL (70-105); Magnesium 2.5 mg/dL (1.6-2.6); Osmolality,Calculated 337 (280-300); Phosphorous 1.3 mg/dL (2.7-4.5); Potassium 2.7 mEq/L (3.5-5.1); Sodium 160 mEq/L (136-145); Total Protein 6.9 g/dL (6.4-8.9); Troponin I < 0.03 ng/mL (< 0.04); eGFR For African Americans > 60 (> 60); eGFR For Non-African Americans 59 (> 60)
[2019-07-05] MEDS ORDERED: 0.9 % Sodium Chloride 1,000 ML IVC SCH (15:45)
[2019-07-05] MEDS ORDERED: Potassium Chloride 40 MEQ, Lidocaine 1% 2 ML in 0.9 % Sodium Chloride 500 ML IVPB ONE (15:46)
[2019-07-05] MEDS ORDERED: Naloxone 0.4 MG/ML INJ IVP PRN (16:49)
[2019-07-05] MEDS ORDERED: Acetaminophen 325 MG TABLET PO PRN (16:49)
[2019-07-05] MEDS ORDERED: Ondansetron 4 MG/2 ML VIAL IVP PRN (16:49)
[2019-07-05] MEDS ORDERED: Dextrose Gel 15 GM/37.5 ML TUBE PO PRN ×2 (16:54)
[2019-07-05] MEDS ORDERED: D5% in Water 1,000 ML IVC PRN (16:54)
[2019-07-05] MEDS ORDERED: *HR* Dextrose 50 % in Water (Syg) 50 ML SYRINGE IVP PRN (16:54)
[2019-07-05] MEDS ORDERED: Azithromycin 500 MG in 0.9 % Sodium Chloride 250 ML IVPB SCH (17:00)
[2019-07-05] MEDS ORDERED: Ipratropium/Albuterol Neb 3 ML IH PRN (17:33)
[2019-07-05] MEDS ORDERED: Insulin LISPRO 300 UNITS/3 ML VIAL SQ SCH (18:00)
[2019-07-05] MEDS ORDERED: cefTRIAXone 1,000 MG in Water for inj. (sterile) 10 ML IVP SCH (18:00)
[2019-07-05 18:03] LABS: C-Reactive Protein 147 mg/L (Less than 10)
[2019-07-05 18:47] LABS: BUN/Creatinine Ratio 22 (6-26); Blood Urea Nitrogen 19 mg/dL (6-20); Calcium 7.2 mg/dL (8.6-10.3); Carbon Dioxide 25 mEq/L (23-29); Chloride 125 mEq/L (98-107); Glucose 106 mg/dL (70-105); Osmolality,Calculated 333 (280-300); Sodium 160 mEq/L (136-145); eGFR For African Americans > 60 (> 60); eGFR For Non-African Americans > 60 (> 60)
[2019-07-05] MEDS: cefTRIAXone 2,000 MG in Water for inj. (sterile) 20 ML IVP SCH (20:19)
[2019-07-05] MEDS: carBAMazepine 200 MG TABLET PO SCH (22:00)
[2019-07-05] MEDS: Potassium Chloride 20 MEQ in D5% in Water 1,000 ML IVC SCH (22:01)
[2019-07-05] MEDS: *HR* Heparin 5,000 UNIT/ML VIAL SQ SCH (22:01)
[2019-07-05 22:53] LABS: BUN/Creatinine Ratio 21 (6-26); Blood Urea Nitrogen 15 mg/dL (6-20); Calcium 7.1 mg/dL (8.6-10.3); Carbon Dioxide 24 mEq/L (23-29); Chloride 126 mEq/L (98-107); Glucose 119 mg/dL (70-105); Osmolality,Calculated 324 (280-300); Sodium 156 mEq/L (136-145); eGFR For African Americans > 60 (> 60); eGFR For Non-African Americans > 60 (> 60)
[2019-07-06] MEDS ORDERED: Melatonin 3 MG TABLET PO ONE (04:14)
[2019-07-06] MEDS: *HR* Heparin 5,000 UNIT/ML VIAL SQ SCH ×3 (05:05→21:12)
[2019-07-06] MEDS: Potassium Chloride 20 MEQ in D5% in Water 1,000 ML IVC SCH (07:24)
[2019-07-06] MEDS: Folic Acid 1 MG TABLET PO SCH (09:24)
[2019-07-06] MEDS: carBAMazepine 200 MG TABLET PO SCH ×2 (09:24→21:12)
[2019-07-06] MEDS: Potassium Chloride 40 MEQ in D5% in Water 1,000 ML IVC SCH ×2 (09:25→17:52)
[2019-07-06] MEDS: Insulin LISPRO 300 UNITS/3 ML VIAL SQ SCH ×3 (10:07→17:51)
[2019-07-06 10:10] LABS: Magnesium 1.9 mg/dL (1.6-2.6); Phosphorous 1.9 mg/dL (2.7-4.5)
[2019-07-06 10:13] LABS: Basophils % 0.2 %; Eosinophils # 0.4 K/mcL (0.0-0.6); Eosinophils % 4.1 %; Hematocrit 31.8 % (35.3-44.9); Hemoglobin 9.1 g/dL (11.5-15.4); Immature Granulocytes % 0.3 % (0-4); Lymphocytes # 1.6 K/mcL (0.6-4.6); Mean Corpuscular HGB Conc 28.6 g/dL (31.6-35.5); Mean Corpuscular Hemoglobin 25.1 pg (28.0-33.3); Mean Corpuscular Volume 87.8 fL (83.0-100.0); Mean Platelet Volume 12.9 fL (9.4-12.4); Monocytes # 0.5 K/mcL (0.0-1.3); Monocytes % 5.2 %; Neutrophils # 6.4 K/mcL (1.6-8.9); Platelet Count 206 K/mcL (140-400); Red Blood Count 3.62 M/mcL (3.82-4.97); Red Cell Distribution Width 19.7 % (11.5-14.5); Segmented Neutrophils % 72.2 %; White Blood Count 8.9 K/mcL (4.3-11.1)
[2019-07-06 10:15] LABS: Anisocytosis 1+ (Not Present); Hypochromasia Present (Not Present); Platelet Estimate Normal (Normal)
[2019-07-06] MEDS: cefTRIAXone 2,000 MG in Water for inj. (sterile) 20 ML IVP SCH (17:51)
[2019-07-06 19:22] LABS: BUN/Creatinine Ratio 10 (6-26); Blood Urea Nitrogen 6 mg/dL (6-20); Calcium 7.7 mg/dL (8.6-10.3); Carbon Dioxide 24 mEq/L (23-29); Chloride 108 mEq/L (98-107); Glucose 154 mg/dL (70-105); Osmolality,Calculated 293 (280-300); Potassium 3.3 mEq/L (3.5-5.1); Sodium 141 mEq/L (136-145); eGFR For African Americans > 60 (> 60); eGFR For Non-African Americans > 60 (> 60)
[2019-07-06] MEDS ORDERED: Insulin LISPRO 300 UNITS/3 ML VIAL SQ SCH (21:00)
[2019-07-07 05:15] LABS: Basophils % 0.2 %; Eosinophils # 0.2 K/mcL (0.0-0.6); Eosinophils % 3.9 %; Hematocrit 32.5 % (35.3-44.9); Hemoglobin 9.5 g/dL (11.5-15.4); Immature Granulocytes % 0.2 % (0-4); Lymphocytes # 1.6 K/mcL (0.6-4.6); Lymphocytes % 27.3 %; Mean Corpuscular HGB Conc 29.2 g/dL (31.6-35.5); Mean Corpuscular Hemoglobin 25.3 pg (28.0-33.3); Mean Corpuscular Volume 86.4 fL (83.0-100.0); Mean Platelet Volume 13.2 fL (9.4-12.4); Monocytes # 0.3 K/mcL (0.0-1.3); Neutrophils # 3.6 K/mcL (1.6-8.9); Platelet Count 216 K/mcL (140-400); Red Blood Count 3.76 M/mcL (3.82-4.97); Red Cell Distribution Width 19.5 % (11.5-14.5); Segmented Neutrophils % 62.4 %; White Blood Count 5.7 K/mcL (4.3-11.1)
[2019-07-07] MEDS: *HR* Heparin 5,000 UNIT/ML VIAL SQ SCH (05:24)
[2019-07-07 05:34] LABS: BUN/Creatinine Ratio 10 (6-26); Blood Urea Nitrogen 6 mg/dL (6-20); Calcium 8.2 mg/dL (8.6-10.3); Carbon Dioxide 23 mEq/L (23-29); Chloride 110 mEq/L (98-107); Glucose 141 mg/dL (70-105); Magnesium 2.1 mg/dL (1.6-2.6); Osmolality,Calculated 288 (280-300); Phosphorous 1.5 mg/dL (2.7-4.5); Potassium 3.6 mEq/L (3.5-5.1); Sodium 139 mEq/L (136-145); eGFR For African Americans > 60 (> 60); eGFR For Non-African Americans > 60 (> 60)
[2019-07-07] MEDS ORDERED: 0.9 % Sodium Chloride 500 ML IVC SCH (07:15)
[2019-07-07] MEDS: Insulin LISPRO 300 UNITS/3 ML VIAL SQ SCH ×2 (08:28→13:18)
[2019-07-07] MEDS: carBAMazepine 200 MG TABLET PO SCH (08:36)
[2019-07-07] MEDS: Folic Acid 1 MG TABLET PO SCH (08:36)
[2019-07-07 14:28] VITALS: BP 103/68
== END 2019-07-07 16:39 | disposition home or self-care (01) | DRG 871 ==
LOC: EMEROOARM 10:36 → SUATTDRO 17:10 → 3ANU 17:10
PROVIDERS: ADMIT Internal Medicine; ATTEND Internal Medicine